=== PATIENT | female | born 1955 | race Caucasian/White ===

== ENCOUNTER 2016-11-21 19:43 | Emergency (ER) | payer MEDICARE, OTHER ==
[~2016-11-21 19:43] MED LIST: ACET325T33 PO; HYDR-3498 PO; HYDR-906 PO; HYDR12.58 PO; NAPR-260 PO; NITR-58 PO; TRAM50TA2 PO
== END 2016-11-21 20:06 | disposition left against medical advice (07) ==
LOC: E/R 19:43
DX: Z53.21 Procedure and treatment not carried out due to patient leaving prior to being seen by health care provider (principal)

== ENCOUNTER 2017-05-21 11:28 | Emergency (ER) | payer OTHER ==
[~2017-05-21] VITALS: Wt 56.0 kg
[2017-05-21] MEDS ORDERED: ACETAMINOPHEN 500 MG TAB PO STA (13:57)
[2017-05-21] MEDS ORDERED: BENA5TAB2 PO (14:37)
[2017-05-21] MEDS ORDERED: ACET500T98 PO (16:29)
--- NOTE | 2017-05-21 16:34 | ERD ---
ER Documentation Chief Complaint Date/Time DATE: 05/21/17 TIME: 16:32 Chief Complaint HTN, HAS PRATT HPI This 61-year-old female comes emergency room because she checked her blood pressure at home and it was high and she also has a headache. She is taking 2 blood pressure medications that she does not know the name of and she did not bring a list in with her. Headache is generalized headache with no visual symptoms no neurological deficits. She has had no chest pain shortness of breath or dizziness. ROS All systems reviewed and are negative except as per history of present illness. Medications Home Meds Active Scripts Acetaminophen (Tylenol) 500 Mg Tab, 500 MG PO Q6H, #20 TAB Prov:CHRIS TRAN DO 05/21/17 Reported Medications Benazepril Hcl* (Benazepril Hcl*) 5 Mg Tablet, 5 MG PO DAILY, #30 TAB 05/21/17 Discontinued Scripts Nitrofurantoin Monohyd Macrocr* (Macrobid*) 100 Mg Capsr, 100 MG PO BID for 7 Days, CAP Prov:DEAN BECERRA PA-C 07/08/16 Hydrocodone/Acetaminophen ([place] 5-325 Tablet) 1 Each Tablet, 1 TAB PO Q6H Y for PAIN, #10 TAB Prov:DEAN BECERRA PA-C 07/08/16 Naproxen* (Naprosyn*) 500 Mg Tablet, 500 MG PO BID Y for PAIN AND/OR INFLAMMATION, #30 TAB Prov:DEAN BECERRA PA-C 07/08/16 Acetaminophen* (Tylenol*) 325 Mg Tablet, 1 TAB PO Q6 Y for PAIN AND OR ELEVATED TEMP, #20 TAB Prov:NICKY MORENO PA-C 05/19/16 Tramadol HCl (Tramadol HCl) 50 Mg Tablet, 50 MG PO Q4 Y for PAIN, #20 TAB Prov:NICKY MORENO PA-C 05/19/16 Hydrochlorothiazide* (Hydrochlorothiazide*) 12.5 Mg Tablet, 12.5 MG PO DAILY, # 30 TAB Prov:DANILO PELAYO MD 05/15/15 Hydrocodone Bit-Acetaminophen* ([place]*) 5-325 Mg Tab, 1 TAB PO Q6 Y for PAIN, # 7 TAB Prov:DANILO PELAYO MD 05/15/15 Allergies Allergies: Coded Allergies: No Known Allergy (Unverified , 05/21/17) PMhx/Soc History of Surgery: Yes (APPY 1975) Anesthesia Reaction: No Hx Neurological Disorder: No Hx Respiratory Disorders: No Hx Cardiac Disorders: Yes (htn, dm) Hx Psychiatric Problems: No Hx Miscellaneous Medical Probl: No Hx Alcohol Use: No Hx Substance Use: No Hx Tobacco Use: No Smoking Status: Never smoker Physical Exam Vitals Vital Signs Date Time Temp Pulse Resp B/P Pulse Ox O2 Delivery O2 Flow Rate FiO2 05/21/17 14:40 58 16 148/82 98 Room Air 05/21/17 11:31 98.1 77 18 170/90 99 Physical Exam Const: [] Head: Atraumatic Eyes: Normal Conjunctiva ENT: Normal External Ears, Nose and Mouth. Neck: Full range of motion..~ No meningismus. Resp: Clear to auscultation bilaterally Cardio: Regular rate and rhythm, no murmurs Abd: Soft, non tender, non distended. Normal bowel sounds Skin: No petechiae or rashes Back: No midline or flank tenderness Ext: No cyanosis, or edema Neur: Awake and alert Psych: Normal Mood and Affect Results 24 hrs Current Medications Medications (Trade) Dose Ordered Sig/Nba Route PRN Reason Start Time Stop Time Status Last Admin Dose Admin Acetaminophen (Tylenol Tab) 1,000 mg ONCE STAT PO 05/21/17 13:57 05/21/17 13:58 DC 05/21/17 14:32 Procedures/MDM Hypertension with a mild headache. Patient was given Tylenol p.o. in the emergency room which resolved her headache completely. She is feeling better. Her blood pressure although elevated is not high enough for the risks of acutely lowering in the emergency room outweighing the benefits. Final value was a systolic of 140. Going to discharge her according to her wishes with instructions to see a primary care doctor tomorrow or the next day. She may need a medication adjustment. Also discharging her Tylenol and return precautions. district leader interpretation: Normal sinus rhythm without arrhythmia. Departure Diagnosis: Primary Impression: Headache Additional Impression: Hypertension Condition: Stable Patient Instructions: Self-Care for Headaches, High Blood Pressure ( Hypertension) Additional Instructions: Llame al doctor PRAKASH y stan cait SHAI PARA DENTRO DE 1-2 STEPHENSON.Dgale a la secretaria que nosotros le instruimos hacer esta shai.Avise o llame si siddiqui condicin se empeora antes de la shai. Regresa aqui si peor o no mejor. CHRIS TRAN DO May 21, 2017 16:34
[2017-05-21 16:49] VITALS: BP 152/87; PULSE 60; RESP 17; TEMP 98.4
== END 2017-05-21 16:50 | disposition home or self-care (01) ==
LOC: E/R 11:28
DX: R51 Headache (principal); E11.9 Type 2 diabetes mellitus without complications
CPT/HCPCS: 99283

== ENCOUNTER 2018-01-14 21:44 | Emergency (ER) | END 2018-01-15 02:06 | disposition home or self-care (01) ==

== ENCOUNTER 2018-03-27 19:00 | Emergency (ER) | END 2018-03-27 22:35 | disposition home or self-care (01) ==